=== PATIENT | male | born 1995 | race Two or more races ===

== ENCOUNTER 2023-04-14 17:27 | Emergency (ER) | payer OTHER ==
[~2023-04-14] VITALS: Ht 170.2 cm; Wt 72.7 kg
[2023-04-14 17:46] VITALS: TEMP 98.2
[2023-04-14] MEDS ORDERED: HYDROCODONE/ACETAMINOPHEN 5-325 MG TABLET PO ONE (19:00)
[2023-04-14] MEDS ORDERED: ACETAMINOPHEN 500 MG TABLET PO ONE (19:00)
[2023-04-14 19:41] VITALS: BP 127/77; PULSE 82; RESP 15
== END 2023-04-14 19:42 | disposition still patient (30) ==
LOC: EMS 17:36
DX: S92.911A Unspecified fracture of right toe(s), initial encounter for closed fracture (principal); X58.XXXA Exposure to other specified factors, initial encounter; Y93.89 Activity, other specified; Y92.89 Other specified places as the place of occurrence of the external cause; Y99.8 Other external cause status
CPT/HCPCS: 99283